=== PATIENT | male | born 1970 | race Caucasian/White ===

== ENCOUNTER 2017-06-12 17:34 | Emergency (ER) | payer SELFPAY ==
[~2017-06-12] VITALS: Ht 167.6 cm; Wt 81.6 kg
--- NOTE | 2017-06-12 19:24 | NUR ---
HANNA APONTE MD AT BEDSIDE FOR MSE.
[2017-06-12] MEDS ORDERED: GUAIFENESIN/CODEINE 5 ML LIQUID UDC PO ONE (19:30)
[2017-06-12] MEDS ORDERED: PSEUDOEPHEDRINE HCL 30 MG TABLET PO ONE (19:30)
[2017-06-12] MEDS ORDERED: GUAIFENESIN/CODEINE 5 ML LIQUID UDC ONE (19:32)
[2017-06-12] MEDS ORDERED: PSEUDOEPHEDRINE HCL 30 MG TABLET ONE (19:32)
[2017-06-12] MEDS ORDERED: ACETAMINOPHEN ES 500 MG TABLET PO ONE (20:30)
[2017-06-12] MEDS ORDERED: ACETAMINOPHEN ES 500 MG TABLET ONE (20:50)
--- NOTE | 2017-06-12 21:30 | NUR ---
Patient discharged to home in stable conditon. Written and verbal after care instructions given. Patient verbalizes understanding of instructions.
[2017-06-12 21:34] VITALS: BP 118/84
== END 2017-06-12 21:35 | disposition home or self-care (01) ==
LOC: ER 17:38
DX: J02.9 Acute pharyngitis, unspecified (principal)
CPT/HCPCS: 71045; 87400; A4663; A9150

== ENCOUNTER 2021-04-24 06:11 | Emergency (ER) | payer OTHER ==
[~2021-04-24] VITALS: Ht 167.6 cm; Wt 81.6 kg
--- NOTE | 2021-04-24 06:21 | NUR ---
pt taken to room 1a via w/c and assisted to [place] pt states he has chest pain. ekg performed, reveals Sinus tachycardia.
--- NOTE | 2021-04-24 06:40 | NUR ---
When attempting to place iv and take blood pt refuses and wants to sign out AMA. notified ER
--- NOTE | 2021-04-24 07:32 | NUR ---
Dr Garvin at the bedside explaining to pt risks of leaving the hospital. Pt disagrees and will leave AMA.
--- NOTE | 2021-04-24 08:07 | NUR ---
Patient does not wish to proceed with medical care recommended by Dr. Ballesteros). Patient given information related to possible complications, up to and including , which could occur as a result of leaving the hospital at this time. Patient verbalizes understanding of risks involved due to leaving against medical advice. Patient has signed AMA form.
[2021-04-24 08:16] VITALS: BP 131/81
== END 2021-04-24 08:10 | disposition left against medical advice (07) ==
LOC: ER 06:13
DX: R07.9 Chest pain, unspecified (principal); R00.0 Tachycardia, unspecified; Z53.29 Procedure and treatment not carried out because of patient's decision for other reasons
CPT/HCPCS: 71045; 93005; A4663

== ENCOUNTER 2021-09-10 22:06 | Inpatient (IN) | payer OTHER ==
[~2021-09-10] VITALS: Ht 177.8 cm; Wt 80.3 kg
[2021-09-10] MEDS ORDERED: IV NORMAL SALINE 1000 ML BAG IV ONE (22:15)
--- NOTE | 2021-09-10 22:15 | NUR ---
Dr. Mckinnon at bedside for MSE
[2021-09-10] MEDS ORDERED: DOCU100C36 PO (22:24)
[2021-09-10] MEDS ORDERED: ALBU1.257 NEB (22:24)
[2021-09-10] MEDS ORDERED: QUET25TA PO (22:24)
[2021-09-10] MEDS ORDERED: FAMO-132 PO (22:24)
[2021-09-10] MEDS ORDERED: ACET-2154 PO (22:24)
[2021-09-10] MEDS ORDERED: MULT-1045 PO (22:24)
[2021-09-10] MEDS ORDERED: POLY17PO4 PO (22:24)
--- NOTE | 2021-09-10 22:25 | NUR ---
In and out catherter done aseptically for urine sample, pt tolerated procedure well.
[2021-09-10 22:50] LABS: HEMATOCRIT 45.8 % (36.7-47.1); MEAN CORPUSCULAR HEMOGLOBIN 28.8 uug (23.8-33.4); MEAN CORPUSCULAR VOLUME 85.1 fL (73.0-96.2); PLATELET COUNT (AUTO) 181 K/uL (152-348)
[2021-09-10 22:52] LABS: *BLOOD, URINE 2+ (NEGATIVE); *CLARITY,URINE CLEAR (CLEAR); *COLOR,URINE YELLOW (YELLOW); *KETONES,URINE NEGATIVE (NEGATIVE); *UROBILINOGEN,URINE >=8.0 E.U./dl (NORMAL); LEUKOCYTE ESTERASE ,URINE NEGATIVE (NEGATIVE); NITRITE, URINE NEGATIVE (NEGATIVE); PH,URINE 5.5 (5.0-8.0); UGLUCOSE NEGATIVE (NEGATIVE)
[2021-09-10 23:01] LABS: *BILIRUBIN,URIN 1+ (NEGATIVE)
[2021-09-10 23:03] LABS: CARBON DIOXIDE 25 mmol/L (21-32); CHLORIDE 112 mmol/L (98-107); CREATININE 1.1 mg/dL (0.6-1.3); GLUCOSE 155 mg/dL (74-106); POTASSIUM 3.8 mmol/L (3.5-5.1); UREA NITROGEN, BLOOD 27 mg/dL (7-18)
[2021-09-10 23:09] LABS: ALANINE AMINOTRANSFERASE 53 U/L (16-63); ALKALINE PHOSPHATASE 113 U/L (50-136); ASPARTATE AMINOTRANSFERASE 21 U/L (15-37); BILIRUBIN,DIRECT 0.5 mg/dL (0.0-0.2); BILIRUBIN,TOTAL 1.7 mg/dL (0.2-1.0); TOTAL PROTEIN, SERUM 8.6 g/dL (6.4-8.2)
[2021-09-10] MEDS ORDERED: PIPERACILLIN/TAZO 4.5 GM VIAL IV ONE (23:14)
[2021-09-10] MEDS ORDERED: VANCOMYCIN IV 200 ML ONE (23:14)
[2021-09-10] MEDS ORDERED: IV NS 1000 ML 1,000 ML IV ONE ×2 (23:15)
[2021-09-10] MEDS ORDERED: PIPERACILLIN SODIUM/TAZOBACTAM 4.5 G in IV DEXTROSE 5% 50 ML IV SCH (23:15)
[2021-09-10] MEDS ORDERED: VANCOMYCIN IV 1,000 MG in IV DEXTROSE 5% 250 ML IV ONE (23:15)
--- NOTE | 2021-09-11 02:18 | NUR ---
Called epic to page Dr. Bauer
[2021-09-11] MEDS ORDERED: hydrALAZINE HCL 20 MG/1 ML VIAL IV PRN (02:30)
[2021-09-11] MEDS ORDERED: ONDANSETRON 4 MG/2 ML VIAL IV PRN (02:30)
[2021-09-11] MEDS ORDERED: MORPHINE SULFATE 2 MG/1 ML DISP.SYRIN IV PRN (02:30)
[2021-09-11] MEDS ORDERED: MIRALAX 17 GM POWD.PACK PO PRN (02:30)
[2021-09-11] MEDS ORDERED: ALBUTEROL SULFATE 2.5 MG/ 0.5 ML NEBU NEB PRN (05:15)
[2021-09-11] MEDS: IV D5 1/2 NS 1000 ML 1,000 ML IV SCH ×2 (05:26→10:56)
--- NOTE | 2021-09-11 05:38 | NUR ---
Diaper changed and patient repositioned for comfort.
--- NOTE | 2021-09-11 07:37 | NUR ---
PT IS RESTING COMFORTABLY IN THE BED. CONTINUE TO MONITOR THE PT.
--- NOTE | 2021-09-11 08:14 | NUR ---
REPORT WAS GIVEN TO MANUFACTURING SCHEDULER. PT WAS TRANSFERED TO ROOM #302.
--- NOTE | 2021-09-11 09:00 | NUR ---
Pt Alert x 1. forgetful pt able to follow commands 50% of the time. PT bilateral operation specialist very weak 1/5. Tele snr. Skin redness on right groin noted and discoloration on right heel - jesus heel floated with pillow. IV on right ac #20 flushin well w/o resistance. Pt lethargic but easily arousable. Pt unable to light up arms for drifting test. Call light is within reach.
--- NOTE | 2021-09-11 10:00 | NUR ---
Aspiration precaution implemented and bed alarm on.
[2021-09-11 10:27] VITALS: BP 131/85
[2021-09-11 10:50] LABS: MUCUS,URINE FEW /LPF (0-FEW); WBC,URINE 0-3 /HPF (0-3)
[2021-09-11] MEDS: DOCUSATE SODIUM 100 MG CAPSULE PO SCH ×2 (10:50→17:57)
[2021-09-11] MEDS: ACETAMINOPHEN 325 MG TABLET PO PRN (10:50)
[2021-09-11] MEDS: FAMOTIDINE 20 MG TABLET PO SCH (10:50)
[2021-09-11] MEDS: QUETIAPINE FUMARATE 25 MG TABLET PO SCH ×2 (10:50→17:57)
[2021-09-11] MEDS: VANCOMYCIN IV 1,000 MG in IV DEXTROSE 5% 250 ML IV SCH ×2 (10:51→17:57)
[2021-09-11] MEDS: CEFEPIME HCL 1 G in IV DEXTROSE 5% 50 ML IV SCH ×2 (10:51→17:57)
[2021-09-11] MEDS: HEPARIN SODIUM,PORCINE 5,000 UNITS/ML VIAL SQ SCH ×2 (10:51→17:57)
[2021-09-11 10:52] LABS: BACTERIA,URINE FEW /HPF (NONE SEEN); SQUAMOUS EPITHELIAL CELL,UR NONE SEEN /HPF (NONE SEEN)
[2021-09-11] MEDS: FLUTICASONE/VILANTEROL 1 EACH BLST.W.DEV INH SCH (11:29)
[2021-09-11 11:54] VITALS: BP 104/61
--- NOTE | 2021-09-11 12:00 | NUR ---
makenna here at bedside commented that she doesnt like the facility that the pt came from. Notified [facility] about wifes concern and possible different placement. Tylenol and ice effective on lowering pt's low grade fever of 99.4.- current temp of 97.6 IVF infusing as ordered.
[2021-09-11 15:57] LABS: BAND % (MANUAL) 3 % (0-10); LYMPHOCYTES % (MANUAL) 16 % (20-40); MONOCYTES % (MANUAL) 6 % (2-10); NEUTROPHILS % (MANUAL) 75 % (42-75)
[2021-09-11 17:03] VITALS: BP 95/59
--- NOTE | 2021-09-11 18:30 | NUR ---
Pt is in no acute distress. F/u call made to radiology secondary to no ct of brain resulted. Per tech will f/u. Notified hs shift to f/u with CT brain. noted pt that he is pocketing his food on the right side. No coughing noted during feeds. Aspiration and fall precaution effective. No fall noted this shift.
[2021-09-11 20:00] VITALS: BP 110/73
--- NOTE | 2021-09-11 20:15 | NUR ---
RECEIVED PATIENT IN BED, AROUSED BY NAME, AND DEEP TOUCH. ORIENTED TO NAME ONLY. INCOHERENT MUMBLING NOTED. ABLE TO OBEY 50% OF COMMANDS, ABLE TO MAKE FISTS WITH BOTH HANDS. REORIENTED PATIENT ACCORDINGLY. ON TELE MONITOR, SHOWING SINUS RHYTHM WITH HR OF 95BPM. ON 3L O2 SATURATING AT 97%. AFEBRILE AT THE MOMENT WITH TEMP OF 98.3. IVF INFUSING WELL. SAFETY AND ASPIRATION PRECAUTIONS INITIATED. MONITORED CLOSELY.
[2021-09-12] VITALS: BP 108/68
[2021-09-12] MEDS: CEFEPIME HCL 1 G in IV DEXTROSE 5% 50 ML IV SCH ×3 (00:04→17:23)
--- NOTE | 2021-09-12 00:30 | NUR ---
VANCO TROUGH DONE, RESULTS CAME IN AT 15.8. 1AM DOSE OF VANCO OK TO ADMINISTER.
[2021-09-12] MEDS: VANCOMYCIN IV 1,000 MG in IV DEXTROSE 5% 250 ML IV SCH ×3 (01:02→18:46)
--- NOTE | 2021-09-12 02:18 | NUR ---
FOLLOWED UP WITH RADIOLOGY FOR PATIENT'S HEAD CT RESULTS, RADIOLOGY DEPARTMENT ADVISED, SCAN HASN'T BEEN READ YET AND WILL BE RESULTED IN THE MORNING.
[2021-09-12 04:00] VITALS: BP 109/81
--- NOTE | 2021-09-12 05:30 | NUR ---
PATIENT SLEPT THROUGH THE NIGHT. CONSTANT REORIENTATION DONE. ON TELEMONITOR, SHOWING SINUS RHYTHM. ON 3L O2, SATURATING AT 100%. PATIENT AFEBRILE THROUGH NIGHT. IV ACCESS PATENT AND INTACT. PT TOLERATED VANCO AND CEFEPIME WELL. IVF D5 1/2 DISCONTINUED. ASPIRATION AND SAFETY PRECAUTIONS MAINTAINED. WILL ENDORSE TO DAY SHIFT.
[2021-09-12 06:16] LABS: MEAN CORPUSCULAR VOLUME 84.3 fL (73.0-96.2); PLATELET COUNT (AUTO) 162 K/uL (152-348)
[2021-09-12 06:32] LABS: BILIRUBIN,TOTAL 1.2 mg/dL (0.2-1.0); CREATININE 0.7 mg/dL (0.6-1.3); PHOSPHOROUS 3.5 mg/dL (2.5-4.9); POTASSIUM 3.3 mmol/L (3.5-5.1); TOTAL PROTEIN, SERUM 7.1 g/dL (6.4-8.2)
--- NOTE | 2021-09-12 07:30 | NUR ---
RECEIVED PATIENT ON BED RESTING COMFORTABLY. PATIENT IS AOX1. ON NC 2L/MIN 98% SAT. SINUS RHYTHM ON TELE MONITOR. RIGHT IV 20G AC PATENT AND INTACT.
[2021-09-12] MEDS: FAMOTIDINE 20 MG TABLET PO SCH (09:49)
[2021-09-12] MEDS: DOCUSATE SODIUM 100 MG CAPSULE PO SCH ×2 (09:49→17:00)
[2021-09-12] MEDS: QUETIAPINE FUMARATE 25 MG TABLET PO SCH ×2 (09:49→17:32)
[2021-09-12] MEDS: FLUTICASONE/VILANTEROL 1 EACH BLST.W.DEV INH SCH (09:49)
[2021-09-12] MEDS: HEPARIN SODIUM,PORCINE 5,000 UNITS/ML VIAL SQ SCH ×2 (09:52→17:23)
[2021-09-12] MEDS ORDERED: POTASSIUM CHLORIDE 20 MEQ POWDER PACKET PO ONE (10:00)
[2021-09-12 11:28] VITALS: BP 110/71
[2021-09-12] MEDS: ACETAMINOPHEN 325 MG TABLET PO PRN (15:39)
--- NOTE | 2021-09-12 15:40 | NUR ---
PATIENT FEBRILE 100.0F. GAVE TYLENOL 650MG PRN PER MD ORDER. WILL RECHECK TEMP.
[2021-09-12 15:58] VITALS: BP 101/59
[2021-09-12] MEDS ORDERED: QUETIAPINE FUMARATE 25 MG TABLET PO SCH (17:00)
--- NOTE | 2021-09-12 18:39 | NUR ---
TYLENOL EFFECTIVE TEMP 98.2F
--- NOTE | 2021-09-12 19:30 | NUR ---
Received patient lying in bed. AAOx1. Mumbles, incomprehensibly. Patient at bedside. In no apparent distress. No complain of pain or SOB at this time. Afebrile at this time with temp of 98.7 orally. On o2 at 2LPM via NC in place. O2 sat at 99%. NSR on tele with HR of 92/min. IV site on right AC intact and patent. Safety measure initiated and call light within reached.
[2021-09-12 20:00] VITALS: BP 95/62
[2021-09-13] VITALS: BP 95/63
--- NOTE | 2021-09-13 | NUR ---
Patient with temp of 100.0 oral. Cooling measures provided. Will continue to monitor.
[2021-09-13] MEDS: CEFEPIME HCL 1 G in IV DEXTROSE 5% 50 ML IV SCH ×3 (00:03→17:03)
[2021-09-13] MEDS: VANCOMYCIN IV 1,000 MG in IV DEXTROSE 5% 250 ML IV SCH ×3 (00:45→17:03)
--- NOTE | 2021-09-13 01:46 | NUR ---
After cooling measure done ,patient latest temp 98.4 orally.
[2021-09-13 04:00] VITALS: BP 118/70
--- NOTE | 2021-09-13 05:21 | NUR ---
AAOx1-2. Speech more comprehensible at this time. Able to make some needs known. Afebrile. Denies any pain or SOB. O2 at 2LPM via NC in place. O2 sat at 96%. NSR on tele with HR of 86/min. IV site on right AC intact and patent. No adverse reaction noted from IV antibiotics. Safety measure maintained and call light within reached.
[2021-09-13 06:33] LABS: HEMATOCRIT 37.5 % (36.7-47.1); MEAN CORPUSCULAR HEMOGLOBIN 29.2 uug (23.8-33.4); MEAN CORPUSCULAR VOLUME 83.9 fL (73.0-96.2); PLATELET COUNT (AUTO) 183 K/uL (152-348)
[2021-09-13 07:18] LABS: CREATININE 0.7 mg/dL (0.6-1.3); MAGNESIUM 2.1 mg/dL (1.8-2.4); PHOSPHOROUS 4.4 mg/dL (2.5-4.9); POTASSIUM 3.5 mmol/L (3.5-5.1)
[2021-09-13] MEDS: HEPARIN SODIUM,PORCINE 5,000 UNITS/ML VIAL SQ SCH ×2 (08:04→17:05)
[2021-09-13] MEDS: FAMOTIDINE 20 MG TABLET PO SCH (08:04)
[2021-09-13] MEDS: FLUTICASONE/VILANTEROL 1 EACH BLST.W.DEV INH SCH (08:05)
[2021-09-13] MEDS: QUETIAPINE FUMARATE 25 MG TABLET PO SCH (08:05)
[2021-09-13] MEDS: DOCUSATE SODIUM 100 MG CAPSULE PO SCH ×2 (09:00→17:04)
--- NOTE | 2021-09-13 09:05 | NUR ---
RECEIVED PATIENT ON BED SLEEPING. NO ACUTE DISTRESS NOTED. PATIENT IS ON 2L/MIN NC. VITALS WNL.
--- NOTE | 2021-09-13 10:30 | NUR ---
SWALLOW EVAL DONE. SPEECH THERAPIES ELIZABET OKAY PUREED FOOD. ASPIRATION PRECAUTION IMPLEMENTED.
[2021-09-13 11:30] VITALS: BP 100/69
[2021-09-13] MEDS ORDERED: QUETIAPINE FUMARATE 25 MG TABLET PO PRN (12:45)
--- NOTE | 2021-09-13 14:50 | NUR ---
REDNESS ON BACK OF THE LEFT EAR NOTED. PUT GAUZE AROUND THE NASAL CANNULA TO AVOID FRICTION. PATIENT IS INCONTINENT. NO REDNESS ON THE BACK NOTED.
[2021-09-13 15:52] VITALS: BP 105/61
--- NOTE | 2021-09-13 19:30 | NUR ---
Received patient lying in bed. AAOx1, mainly confused. at bedside. In no acute distress. No complain of pain or SOB. O2 at 2LPM via NC in place. O2 sat at 97%. Sinus tachy on tele with HR of 102/min. IV site on right AC intact and patent. Safety measure initiated and call light within reached.
[2021-09-13 20:41] VITALS: BP 120/61
[2021-09-14 00:19] VITALS: BP 127/61
[2021-09-14] MEDS: CEFEPIME HCL 1 G in IV DEXTROSE 5% 50 ML IV SCH ×3 (00:23→17:01)
[2021-09-14] MEDS: VANCOMYCIN IV 1,000 MG in IV DEXTROSE 5% 250 ML IV SCH ×3 (01:05→18:23)
[2021-09-14 04:26] VITALS: BP 94/57
--- NOTE | 2021-09-14 05:56 | NUR ---
In no acute distress. O2 at 2LPM via NC in place. NSR on tele with HR of 80/min. IV site on right AC intact and patent. No adverse reaction noted from IV antibiotics. Safety measure maintained and call light within reached.
[2021-09-14 07:10] LABS: HEMATOCRIT 36.3 % (36.7-47.1); MEAN CORPUSCULAR HEMOGLOBIN 28.8 uug (23.8-33.4); MEAN CORPUSCULAR VOLUME 83.7 fL (73.0-96.2); PLATELET COUNT (AUTO) 215 K/uL (152-348)
[2021-09-14 07:17] LABS: CREATININE 0.7 mg/dL (0.6-1.3); MAGNESIUM 2.3 mg/dL (1.8-2.4); POTASSIUM 3.7 mmol/L (3.5-5.1)
--- NOTE | 2021-09-14 08:30 | NUR ---
Patient in bed, awake and alert to self. Patient also calling himself Napoleon. On RA, no SOB, noted with huccups. HOB up, Patient needs to be assisted with feeding and drinking. Able to tolerate fluids and puree food well. Able to swallow pills whole without difficulty. HOB elevated, aspiration precautions continued. Right AC IV patent and intact. Call light within reach, safety measures initiated.
[2021-09-14] MEDS: FAMOTIDINE 20 MG TABLET PO SCH (08:48)
[2021-09-14] MEDS: DOCUSATE SODIUM 100 MG CAPSULE PO SCH ×2 (08:48→17:02)
[2021-09-14] MEDS: HEPARIN SODIUM,PORCINE 5,000 UNITS/ML VIAL SQ SCH ×2 (08:49→17:04)
[2021-09-14] MEDS: FLUTICASONE/VILANTEROL 1 EACH BLST.W.DEV INH SCH (08:50)
[2021-09-14 11:29] VITALS: BP 98/64
[2021-09-14 16:00] VITALS: BP 102/73
[2021-09-14] MEDS ORDERED: VANCOMYCIN IV 1,000 MG in IV DEXTROSE 5% 250 ML IV SCH (17:00)
--- NOTE | 2021-09-14 19:30 | NUR ---
Received patient lying in bed. AAOx1, mainly confused. In no acute distress. No signs or symptoms of pain or SOB. NSR on tele with HR of 92/min. IV site on left hand intact and patent. Safety measure initiated and call light within reached.
[2021-09-14 20:30] VITALS: BP 113/68
--- NOTE | 2021-09-14 23:06 | NUR ---
Informed [employer] WORK[employer] Lira that patient is having severe hiccups and ordered Thorazine x1 dose. Will carry out order.
[2021-09-14] MEDS ORDERED: chlorproMAZINE 50 MG/2 ML AMPUL IM ONE (23:15)
[2021-09-14] MEDS ORDERED: chlorproMAZINE 50 MG/2 ML AMPUL ONE (23:24)
[2021-09-15 00:26] VITALS: BP 96/66
[2021-09-15] MEDS: VANCOMYCIN IV 1,000 MG in IV DEXTROSE 5% 250 ML IV SCH ×2 (01:01→10:11)
[2021-09-15 04:00] VITALS: BP 101/64
--- NOTE | 2021-09-15 05:12 | NUR ---
Patient slept through out the night. In no acute distress. O2 at 2LPM via NC in place. NSR on tele with HR of 75/min. IV site on left hand intact and patent. No adverse reaction noted from IV antibiotics. Safety measure maintained and call light within reached.
[2021-09-15 07:45] LABS: HEMATOCRIT 38.8 % (36.7-47.1); MEAN CORPUSCULAR HEMOGLOBIN 28.8 uug (23.8-33.4); MEAN CORPUSCULAR VOLUME 83.3 fL (73.0-96.2); PLATELET COUNT (AUTO) 279 K/uL (152-348)
[2021-09-15 07:56] LABS: CREATININE 0.7 mg/dL (0.6-1.3); MAGNESIUM 2.4 mg/dL (1.8-2.4); POTASSIUM 3.8 mmol/L (3.5-5.1)
--- NOTE | 2021-09-15 08:00 | NUR ---
Patient in n bed awake, alert to self and place. No noted resp distress, afebrile. Abdomen soft to touch, non distended. Denies chest pain. No noted coughing, no SOB, on room air. Assisted with feeding, aspiration precautions continued. Telemetry is normal sinus rhythm with heart rate 80's-90's. Call light within reach. Safety measures continued.
[2021-09-15] MEDS: CEFEPIME HCL 1 G in IV DEXTROSE 5% 50 ML IV SCH ×3 (09:21)
[2021-09-15] MEDS: HEPARIN SODIUM,PORCINE 5,000 UNITS/ML VIAL SQ SCH ×2 (09:21→17:13)
[2021-09-15] MEDS: FAMOTIDINE 20 MG TABLET PO SCH (09:22)
[2021-09-15] MEDS: DOCUSATE SODIUM 100 MG CAPSULE PO SCH ×2 (09:22→17:12)
[2021-09-15] MEDS: FLUTICASONE/VILANTEROL 1 EACH BLST.W.DEV INH SCH (10:10)
[2021-09-15 11:44] VITALS: BP 96/63
--- NOTE | 2021-09-15 15:00 | NUR ---
Aisha ex at bedside made aware of the discharge.
--- NOTE | 2021-09-15 16:15 | NUR ---
Received call from [facility], cone picker time is 6:00PM by [facility].
[2021-09-15 16:19] VITALS: BP 98/62
[2021-09-15] MEDS ORDERED: ASPI-866 PO (16:19)
[2021-09-15] MEDS ORDERED: QUET25TA PO (16:19)
[2021-09-15] MEDS ORDERED: MAGNESIUM CITRATE 296 ML BOTTLE PO ONE (17:00)
--- NOTE | 2021-09-15 18:05 | NUR ---
Report given to Fantasma MORROW of [facility]. Discharge papers provided to EMT. Patient discharged in stable condition, not resp in distress, no cough, no SOB. Belongings and valuables given.
== END 2021-09-15 18:10 | DRG 137 ==
LOC: ER 22:18 → TELE3 09-11 04:52
PROVIDERS: ADMIT Nurse Practitioner Acute Care; ATTEND Nurse Practitioner Family
DX: J69.0 Pneumonitis due to inhalation of food and vomit (principal); N17.0 Acute kidney failure with tubular necrosis; G93.41 Metabolic encephalopathy; E44.0 Moderate protein-calorie malnutrition; E87.0 Hyperosmolality and hypernatremia; E88.09 Other disorders of plasma-protein metabolism, not elsewhere classified; E86.0 Dehydration; E86.1 Hypovolemia; I25.2 Old myocardial infarction; K59.00 Constipation, unspecified; Z20.822 Contact with and (suspected) exposure to COVID-19; Z86.73 Personal history of transient ischemic attack (TIA), and cerebral infarction without residual deficits; Z68.25 Body mass index [BMI] 25.0-25.9, adult; Z87.01 Personal history of pneumonia (recurrent)
CPT/HCPCS: 36415; 70030-TC; 70450; 71045; 71250; 83605; 83735; 84100; 84484; 85025; 85730; 87040; 87086; 93005; 93307; 97161; A6209; C1758; G0378; J0692; J1644; J2543; J3230; J3370; J7040; J7050

== ENCOUNTER 2022-01-11 17:18 | Emergency (ER) | payer OTHER ==
[~2022-01-11] VITALS: Ht 167.6 cm; Wt 83.9 kg
[~2022-01-11 17:18] MED LIST: ACET-2154 PO; ALBU1.25 NEB; ALBU1.257 NEB; ASPI-866 PO; DOCU-141 PO; DOCU100C36 PO; FAMO-132 PO; HEPA50007 SQ; MULT-1045 PO; MULT-24 PO; POLY17PO4 PO; QUET25TA PO; QUET25TA36 PO
[2022-01-11] MEDS ORDERED: ACETAMINOPHEN ES 500 MG TABLET PO ONE (18:15)
[2022-01-11] MEDS ORDERED: ONDANSETRON 4 MG/2 ML VIAL IV ONE ×2 (18:15→19:00)
--- NOTE | 2022-01-11 18:15 | NUR ---
PT IS IN ROOM #2B. DR SILVESTRE EVALUATED THE PT.
[2022-01-11] MEDS ORDERED: ONDANSETRON 4 MG/2 ML VIAL ONE ×2 (18:16→19:01)
[2022-01-11] MEDS ORDERED: ACETAMINOPHEN ES 500 MG TABLET ONE (18:16)
[2022-01-11 18:38] LABS: HEMATOCRIT 49.1 % (36.7-47.1); MEAN CORPUSCULAR HEMOGLOBIN 28.4 uug (23.8-33.4); MEAN CORPUSCULAR VOLUME 83.8 fL (73.0-96.2); PLATELET COUNT (AUTO) 201 K/uL (152-348)
[2022-01-11 18:41] LABS: BILIRUBIN,DIRECT 0.1 mg/dL (0.0-0.2); CREATININE 1.2 mg/dL (0.6-1.3); POTASSIUM 3.7 mmol/L (3.5-5.1); TOTAL PROTEIN, SERUM 8.2 g/dL (6.4-8.2)
[2022-01-11] MEDS ORDERED: IV NS 1000 ML 1,000 ML IV ONE (19:00)
[2022-01-11] MEDS ORDERED: HYDROMORPHONE 1 MG/1 ML DISP.SYRIN IV ONE (19:00)
--- NOTE | 2022-01-11 19:00 | NUR ---
Change of shift report from Wenceslao MORROW
[2022-01-11] MEDS ORDERED: HYDROMORPHONE 1 MG/1 ML DISP.SYRIN ONE (19:02)
[2022-01-11] MEDS ORDERED: SWABABLE VALVE TRANSFER SET EA MC ONE (19:29)
[2022-01-11] MEDS ORDERED: IOHEXOL 300MG/ML 50 ML VIAL ONE (19:29)
[2022-01-11] MEDS ORDERED: IV NORMAL SALINE 250 ML IV ONE (19:29)
--- NOTE | 2022-01-11 19:45 | NUR ---
Patient back from CT
[2022-01-11] MEDS ORDERED: OXYC-128 PO (20:30)
[2022-01-11] MEDS ORDERED: KETO10TA2 PO (20:30)
[2022-01-11] MEDS ORDERED: KETOROLAC TROMETHAMINE 30 MG INJ IVP ONE (20:30)
[2022-01-11] MEDS ORDERED: PROC10TA29 PO (20:30)
[2022-01-11] MEDS ORDERED: KETOROLAC TROMETHAMINE 30 MG INJ ONE (20:37)
--- NOTE | 2022-01-11 20:47 | NUR ---
Patient discharged to home in stable condition. Written and verbal after care instructions given. Patient verbalizes understanding of instructions. Stressed follow up or return to ER for worsening s/s. Patient is a/ox4, NAD noted. Patient is able to walk with steady gait
[2022-01-11 20:48] VITALS: BP 130/87
[2022-01-11 20:49] LABS: *BILIRUBIN,URIN NEGATIVE (NEGATIVE); *BLOOD, URINE 3+ (NEGATIVE); *CLARITY,URINE SLIGHTLY CLOUDY (CLEAR); *COLOR,URINE YELLOW (YELLOW); *KETONES,URINE NEGATIVE (NEGATIVE); *UROBILINOGEN,URINE 0.2 E.U./dl (NORMAL); LEUKOCYTE ESTERASE ,URINE TRACE (NEGATIVE); NITRITE, URINE NEGATIVE (NEGATIVE); UGLUCOSE NEGATIVE (NEGATIVE)
[2022-01-11 21:06] LABS: RBC,URINE TNTC /HPF (0-3)
[2022-01-11 21:07] LABS: BACTERIA,URINE FEW /HPF (NONE SEEN); SQUAMOUS EPITHELIAL CELL,UR NONE SEEN /HPF (NONE SEEN)
== END 2022-01-11 20:49 | disposition home or self-care (01) ==
LOC: ER 17:18
DX: N13.2 Hydronephrosis with renal and ureteral calculous obstruction (principal); E87.20 Acidosis, unspecified; Z87.01 Personal history of pneumonia (recurrent); Z91.89 Other specified personal risk factors, not elsewhere classified
CPT/HCPCS: 99285; 74177; 96374; 96375; 80076; 80048; 81001; 83690; 85025; 36415; 96376; 83605; Q9967; J1885; J2405 ×2; J1170; J7040; A4663; A9150